=== PATIENT | male | born 1980 | race Caucasian/White ===

== ENCOUNTER 2019-06-29 14:47 | Emergency (ER) | payer MEDICAID ==
[~2019-06-29] VITALS: Ht 182.9 cm; Wt 111.6 kg
[2019-06-29 15:05] VITALS: Ht 182.9 cm; Wt 111.6 kg
[2019-06-29 16:37] VITALS: BP 136/90
== END 2019-06-29 16:39 | disposition home or self-care (01) ==
LOC: ED 14:47
DX: S13.9XXA Sprain of joints and ligaments of unspecified parts of neck, initial encounter (principal); S00.93XA Contusion of unspecified part of head, initial encounter; I10 Essential (primary) hypertension; W22.8XXA Striking against or struck by other objects, initial encounter; Y93.89 Activity, other specified; Y92.89 Other specified places as the place of occurrence of the external cause; Y99.8 Other external cause status